=== PATIENT | female | born 2000 | race American Indian/Alaskan Native ===

== ENCOUNTER 2022-01-15 14:06 | Emergency (ER) | payer MEDICAID ==
[2022-01-15] MEDS ORDERED: PENICILLIN G BENZATHINE 1.2 MILLION UNIT/2 ML INJ IM ONE (18:29)
[2022-01-15] MEDS ORDERED: KETOROLAC 10 MG TAB PO ONE (18:31)
[2022-01-15] MEDS ORDERED: dexAMETHasone 4 MG/ML VIAL IM ONE (18:31)
--- NOTE | 2022-01-15 18:47 | Emergency Department Report ---
<JOSE CRUZ ROSE - Last Filed: 01/15/22 18:54> ED ENT HPI - General Chief complaint: Fever Stated complaint: FEVER/SORE THROAT Time Seen by Provider: 01/15/22 18:13 Source: patient Mode of arrival: Ambulatory Limitations: No Limitations - History of Present Illness Initial comments: 21-year-old black female with no past medical history presents to the emergency department for evaluation of 3-day history of worsening fever, sore throat, headache, and swelling in throat. She states that she had a T-max yesterday of 101 and denies cough and abdominal pain. She states that pain is 10 out of 10. MD complaint: sore throat -: Gradual, days(s) (3) Location: throat Severity: severe Severity scale (0 -10): 10 Quality: burning, aching Consistency: constant Worsens with: swallowing Associated Symptoms: fever, pain with swallowing, sore throat. denies: cough, gum swelling, toothache, tinnitus, hearing loss, discharge from ear, rhinorrhea - Related Data Previous Rx's Medication Instructions Recorded Last Taken Type Nystas/Diphen/Xyl Visc/Mylanta 30 ml MM Q4H PRN #120 ml 01/15/22 Unknown Rx [Magic Mouthwash] methylPREDNISolone [Medrol 4MG 4 mg PO DAILY #1 pack 01/15/22 Unknown Rx DOSEPAK (21 tabs)] Allergies Allergy/AdvReac Type Severity Reaction Status Date / Time No Known Allergies Allergy Verified 01/15/22 18:09 ED Dental HPI - General Chief complaint: Fever Stated complaint: FEVER/SORE THROAT Time Seen by Provider: 01/15/22 18:13 Source: patient Mode of arrival: Ambulatory Limitations: No Limitations - Related Data Previous Rx's Medication Instructions Recorded Last Taken Type Nystas/Diphen/Xyl Visc/Mylanta 30 ml MM Q4H PRN #120 ml 01/15/22 Unknown Rx [Magic Mouthwash] methylPREDNISolone [Medrol 4MG 4 mg PO DAILY #1 pack 01/15/22 Unknown Rx DOSEPAK (21 tabs)] Allergies Allergy/AdvReac Type Severity Reaction Status Date / Time No Known Allergies Allergy Verified 01/15/22 18:09 ED Review of Systems Comment: All other systems reviewed and negative Constitutional: no symptoms reported, fever. denies: chills ENT: throat pain. denies: ear pain, dental pain, hearing loss, epistaxis, congestion Respiratory: denies: cough, shortness of breath, SOB with exertion, SOB at rest Cardiovascular: denies: chest pain, palpitations, dyspnea on exertion Gastrointestinal: denies: abdominal pain, nausea, vomiting Genitourinary: denies: urgency, dysuria, frequency, hematuria, discharge Musculoskeletal: denies: back pain Skin: denies: rash, lesions Neurological: headache. denies: weakness, numbness, paresthesias, confusion, abnormal gait, vertigo Hematological/Lymphatic: swollen glands ED Past Medical Hx - Social History Smoking Status: Never Smoker Substance Use Type: Alcohol - Medications Home Medications: Home Medications Medication Instructions Recorded Confirmed Last Taken Type Nystas/Diphen/Xyl Visc/Mylanta 30 ml MM Q4H PRN #120 ml 01/15/22 Unknown Rx [Magic Mouthwash] methylPREDNISolone [Medrol 4MG 4 mg PO DAILY #1 pack 01/15/22 Unknown Rx DOSEPAK (21 tabs)] ED Physical Exam - General Limitations: No Limitations General appearance: alert, in no apparent distress - Head Head exam: Present: atraumatic, normocephalic - Eye Eye exam: Present: normal appearance. Absent: conjunctival injection - Expanded ENT Exam Expanded Throat exam: Positive: tonsillar erythema, tonsillomegaly, tonsillar exudate. Negative: R peritonsillar mass, L peritonsillar mass - Neck Neck exam: Present: tenderness, lymphadenopathy (Anterior cervical). Absent: normal inspection - Respiratory Respiratory exam: Present: normal lung sounds bilaterally. Absent: respiratory distress, wheezes, rales, rhonchi, stridor, chest wall tenderness - Cardiovascular Cardiovascular Exam: Present: tachycardia, normal heart sounds - GI/Abdominal GI/Abdominal exam: Present: soft, normal bowel sounds. Absent: distended, tenderness, guarding, rebound, rigid - Extremities Exam Extremities exam: Present: normal inspection - Back Exam Back exam: Present: normal inspection. Absent: CVA tenderness (R), CVA tenderness (L) - Neurological Exam Neurological exam: Present: alert, oriented X3, normal gait - Psychiatric Psychiatric exam: Present: normal affect, normal mood - Skin Skin exam: Present: warm, dry, intact, normal color ED Medical Decision Making - Medical Decision Making 21-year-old black female with no past medical history presents to the emergency department for evaluation of 3-day history of worsening fever, sore throat, headache, and swelling in throat. She states that she had a T-max yesterday of 101 and denies cough and abdominal pain. She states that pain is 10 out of 10 Exam consistent with exudative pharyngitis, and Centor score of 4 (51 to 53% probability of strep pharyngitis). Patient will be treated for presumptive strep with 1,200,000 units of Bicillin LA. She will be given one-time dose of Decadron 8 mg IM and Toradol 10 mg p.o. for pain and swelling. She will be discharged home with Magic mouthwash and Medrol Dosepak to take as directed. She is advised to take medication as directed and follow-up with primary care provider if no improvement or worsening symptoms. She is advised to return to the emergency department as needed. She verbalized understanding of and agreement with plan of care. ED Disposition Clinical Impression: Exudative pharyngitis Disposition: 01 HOME / SELF CARE / HOMELESS Is pt being admited?: No Does the pt Need Aspirin: No Condition: Stable Instructions: Strep Throat, Adult, [id number] Additional Instructions: Take medications as prescribed. Follow-up with primary care provider as needed. Return to the emergency department as needed. Prescriptions: Nystas/Diphen/Xyl Visc/Mylanta [Magic Mouthwash] 30 ml MM Q4H PRN #120 ml PRN Reason: Sore Throat methylPREDNISolone [Medrol 4MG DOSEPAK (21 tabs)] 4 mg PO DAILY #1 pack Referrals: TIO CHOI MD [Primary Care Provider] - 3-5 Days Forms: Work/School Release Form(ED) Time of Disposition: 18:46 <RAIALESSANDROGURVINDER U - Last Filed: 01/18/22 19:16> ED Review of Systems ROS: Stated complaint: FEVER/SORE THROAT Other details as noted in HPI ED Course Vital Signs 01/15/22 01/15/22 01/15/22 14:39 16:37 18:11 Temperature 99.6 F Pulse Rate 110 H 109 H Respiratory 16 16 18 Rate Blood Pressure 109/59 [Left] O2 Sat by Pulse 100 100 99 Oximetry 01/15/22 18:58 Temperature 99.6 F Pulse Rate 83 Respiratory 18 Rate Blood Pressure 121/84 [Left] O2 Sat by Pulse 99 Oximetry ED Medical Decision Making - Medical Decision Making I have reviewed the PA/ELECTRICAL INSPECTOR's note and plan of care. I was available for consultation as needed at all times during the patient's visit in the emergency department but was not consulted on this case. I agree with the plan to return to the ER if the patient's symptoms worsen or do not improve. Critical care attestation.: If time is entered above; I have spent that time in minutes in the direct care of this critically ill patient, excluding procedure time.
[2022-01-15 19:00] VITALS: BP 121/84
== END 2022-01-15 19:18 | disposition home or self-care (01) ==
LOC: ED 14:06
DX: J02.8 Acute pharyngitis due to other specified organisms (principal)
CPT/HCPCS: 96372; 99282; J0561; J1100